=== PATIENT | female | born 1950 | race Caucasian/White ===

== ENCOUNTER → 2017-08-24 | Day surgery (SDC) | payer BC, MEDICARE ==
[~2017-08-24] VITALS: Ht 162.6 cm; Wt 95.8 kg
[~2017-08-24] MED LIST: *ONDANSETRON 4 MG VIAL PERIprocedural Use ONLY ONE; *PROMETHAZINE 25 MG/ML VIAL PERIprocedural use ONLY ONE; *diphenhydrAMINE HCL 50 MG/ML VIAL PERIprocedural Use ONLY ONE; ACETAMINOPHEN 1000 MG/100 ML 100 ML IV SCH; ACETAMINOPHEN/HYDROcodone 325 MG/5 MG TAB PO PRN; BUPIVACAINE/EPINEPHRINE 0.25% 50 ML VIAL ONE; CHLORHEXIDINE GLUCONATE 2 % 1 PACK (2 CLOTHS) TOPICAL PRN; DO NOT ADM ANY ANTICOAGULANT DRUGS PRN; ESMOLOL HCL 100 MG/10 ML VIAL IV ONE; FAMOTIDINE 20 MG/2 ML VIAL ONE; GLYCOPYRROLATE 1 MG/5 ML SYRINGE IV PUSH ONE; HYDROmorphone HCL PF 0.5 MG/0.5 ML SYRINGE IV PRN; INSULIN HUMAN REGULAR 1,000 UNITS/10 ML VIAL SQ PRN; KETOROLAC TROMETHAMINE 30 MG/ML (IVP) VIAL IV PUSH ONE; LACTATED RINGER'S 1000 ML INJ 1,000 ML IV SCH; LACTATED RINGER'S 1000 ML IV PRN; LEVS0.123 PO; LOMO2.5T PO; LOPE1TAB36 PO; METOPROLOL TARTRATE 25 MG TAB PO PRN; NEOSTIGMINE 3 MG/3 ML SYR IV ONE; ONDANSETRON HCL 4 MG/2 ML VIAL IV PUSH ONE; ONDANSETRON HCL 4 MG/2 ML VIAL IV PUSH PRN; PHENYLEPH/NS 1000 MCG/10 ML SYR IV ONE; POVIDONE IODINE 5% (ANTISEPSIS KIT) 4 APPLICATIONS EACH NARE PRN; PREM0.452 PO; PROPOFOL 200 MG/20 ML AMP IV ONE; PROT40TA PO; ROCURONIUM INJ 50 MG/5 ML SYRINGE IV PUSH ONE; SODIUM CHLORID 0.9% 500 ML IV PRN; SUCCINYLCHOLINE CHLORIDE 100 MG/5 ML SYRINGE IV PUSH ONE; VANCOMYCIN HCL 1000 MG ON-CALL/NS 250 ML IV SCH; VITA400C28 PO; ceFAZolin 1,000 MG/NS 100 ML IV SCH
[2017-08-24 11:41] LABS: AUTOMATED NEUTROPHIL # 4.7 TH/MM3 (1.8-7.7); BASOPHIL % 0.4 % (0.0-2.0); EOSINOPHIL # 0.1 TH/MM3 (0-0.4); EOSINOPHIL % 1.7 % (0.0-4.0); HEMATOCRIT 40.5 % (35.0-46.0); HEMO FLAGS DIFF FINAL; LYMPHOCYTE # 1.4 TH/MM3 (1.0-4.8); MEAN CELL VOLUME 88.6 FL (80.0-100.0); MEAN CORPUSCULAR HEMOGLOBIN 29.5 PG (27.0-34.0); MEAN CORPUSCULAR HGB CONC 33.3 % (32.0-36.0); MONO % 6.7 % (0.0-8.0); NEUT % 70.2 % (16.0-70.0); PLATELET COUNT 308 TH/MM3 (150-450); RED BLOOD COUNT 4.57 MIL/MM3 (4.00-5.30); RED CELL DISTRIBUTION WIDTH 14.7 % (11.6-17.2); WHITE BLOOD COUNT 6.7 TH/MM3 (4.0-11.0)
[2017-08-24 11:54] LABS: BICARBONATE 26.9 MEQ/L (21.0-32.0); POTASSIUM 3.5 MEQ/L (3.5-5.1)
--- NOTE | 2017-08-24 15:11 | EKG ---
Date Performed: 08/24/2017 Time Performed: 10:49:48 PTAGE: 67 years EKG: Sinus rhythm LOW QRS VOLTAGE IN PRECORDIAL LEADS BORDERLINE ECG PREVIOUS TRACING : 01/01/2015 10.01 Compared to prior tracing no significant change DOCTOR: Kaz Malone Interpretating Date/Time 08/24/2017 15:10:48
[2017-08-24 18:19] VITALS: BP 143/83; PULSE 99; RESP 20; TEMP 98; O2SAT 99
--- NOTE | 2017-08-27 21:45 | MP ---
cc: KEARA RAND M.D., DONATO R. MD FABIAN, MICHAEL DATE OF SURGERY 08/24/2017 PROCEDURE 1. Laparoscopic appendectomy. 2. Laparoscopic lysis of adhesions. PREOPERATIVE DIAGNOSIS Serrated sessile polyp at appendiceal orifice POSTOPERATIVE DIAGNOSIS Serrated sessile polyp at appendiceal orifice ANESTHESIA General endotracheal SURGEON Jhoana Trinidad MD ESTIMATED BLOOD LOSS 10 mL FLUIDS 1100 mL crystalloid COMPLICATIONS None. DRAINS None. SPECIMEN Appendix and tip of cecum to pathology. PROCEDURE IN DETAIL The patient was taken to the operating room and placed on the operating table in the supine position. After an adequate level of general endotracheal anesthesia was achieved, the abdomen was prepped and draped in usual fashion. Time-out was taken confirming the correct patient, site and procedures to be performed. Incision was made in the umbilicus and carried through the fascia sharply. The peritoneal cavity was directly visualized and no adhesions were seen directly around the umbilicus. A 12 mm balloon trocar was inserted and the balloon inflated. The abdomen was insufflated. A 5 mm 30 degree laparoscope was then inserted. The patient was noted to have some adhesions in the right lower quadrants, but these appeared to be somewhat filmy. A 5-mm trocar could be placed in the right lower quadrant under direct vision and entered the abdominal cavity uneventfully. At this point, endo-beltran were used to sharply take down adhesions from the anterior abdominal wall. A single loop of intestine was loosely adhered to the anterior abdominal wall and this was taken down sharply as well without any injury to the intestine. When this had been completed, the entire right lower quadrant was freed up and a few small adhesions were taken down off of the anterior abdominal wall in the midline. An infraumbilical, midline 5 mm trocar was then placed and this entered the abdominal cavity under direct vision uneventfully. At this point, the cecum was mobilized. Loops of small bowel were loosely adhered to this area and these were taken down with sharp dissection. When this had been accomplished, the appendix was exposed and the mesoappendix then taken down with the harmonic scalpel. The cecum was then further mobilized from the retroperitoneal position and mobilized somewhat medially. The terminal ileum and ileocecal valve were identified and these were kept free from the area of dissection. At this point, a reticulated powered stapler was placed into the umbilical port site and placed across the base of the cecum including all of the appendix and a small amount of the cecum. This would assure that the specimen that had been obtained would include the area that had been biopsied by Dr. Moreno. When this had been placed, the stapler was fired. A small tuft of cecum was at the end of the staple line. A second firing was thus utilized so that there was no question that the staple line was intact. The specimen was then placed into an EndoCatch device and removed via the umbilical port and passed off the table. The staple line was examined as was the mesoappendix and seen to be hemostatic. All of the previous adhesions that had been lysed were reexamined and found to be hemostatic and intact. At this point, insufflation was discontinued and the 5 mm trocars removed under direct vision. No bleeding was noted from the trocar sites. The laparoscope and umbilical port were then removed. The fascia was closed in the umbilicus with 0 Vicryl suture in both a simple interrupted and [id number] fashion. The remaining local anesthetic was injected into each of the port sites and the skin closed at each of these sites with 4-0 Vicryl in an interrupted buried fashion. All trocar sites were dressed with Steri-Strips. The patient was extubated and taken back to the recovery room in stable condition. She tolerated the procedure well. MD JENIFER Prater/ /12:08 AM /9:37 PM
== END | disposition home or self-care (01) ==
LOC: HSDC 10:10
PROVIDERS: ATTEND Surgery Trauma Surgery
DX: D12.1 Benign neoplasm of appendix (principal); K66.0 Peritoneal adhesions (postprocedural) (postinfection); K57.30 Diverticulosis of large intestine without perforation or abscess without bleeding; Z01.810 Encounter for preprocedural cardiovascular examination; Z01.818 Encounter for other preprocedural examination
CPT/HCPCS: 00840; 44970; 80048; 85025; 88307; 93005; J0131; J0330; J0690; J1200; J1885; J2370; J2405; J2550; J2710; J3010; J7120; 88305